=== PATIENT | female | born 1930 | race African-American/Black ===

== ENCOUNTER 2019-04-05 13:27 | Inpatient (IN) ==
[2019-04-05] MEDS ORDERED: SODIUM CHLORIDE 0.9% 1,000 ML IV ONE (15:25)
[2019-04-05] MEDS ORDERED: NOREPINEPHRINE 4 MG/4 ML VIAL IV ONE (15:33)
[2019-04-05] MEDS: NOREPINEPHRINE 8 MG in SODIUM CHLORIDE 0.9% 242 ML IV PRN ×2 (15:36→21:10)
[2019-04-05] MEDS ORDERED: PROPOFOL 1,000 MG/100 ML BOTTLE IV ONE (15:55)
[2019-04-05] MEDS: PROPOFOL 1,000 MG/100 ML BOTTLE IV SCH (16:02)
[2019-04-05 16:06] LABS: ABG Base Excess -10.6 MMOL/L (-2.5-2.5); ABG Oxygen Saturation 94.3 % (95-100); ABG PCO2 51.1 MM HG (35-48); ABG TCO2 17.1 MMOL/L (23-27); Allen Test Positive; Pt O2 Delivery Device Ventilator
[2019-04-05 16:09] LABS: ABG PH 7.161 (7.35-7.45)
[2019-04-05] MEDS ORDERED: SODIUM BICARBONATE 50 MEQ/50 ML VIAL IV ONE ×2 (16:09→16:10)
[2019-04-05] MEDS ORDERED: PHENYLEPHRINE DRIP 0 MG/0 ML PREMIX IV ONE (16:13)
[2019-04-05] MEDS ORDERED: DOBUTamine 500 MG/250 ML PREMIX IV ONE (16:14)
[2019-04-05] MEDS: DOBUTamine 500 MG/250 ML PREMIX IV PRN (16:24)
[2019-04-05 17:03] LABS: Basophils % 0.4 % (0.0-0.8); Hematocrit 34.2 VOL% (35.7-47.0); Hemoglobin 10.7 GM/DL (12.0-16.0); Immature Granulocytes % 2.6 %; Lymphocytes # 1.5 10*3/uL (1.4-4.0); Lymphocytes % 19.6 % (21.3-54.2); Mean Corpuscular HGB Conc 31.3 GM/DL (32-36); Mean Corpuscular Volume 87.2 FL (87-102); Mean Platelet Volume 11.3 FL (9.6-12.0); Monocytes % 2.5 % (1.7-12.7); Neutrophils % 74.9 % (38.7-73.9); Platelet Count 149 T/CUMM (130-400); Red Blood Count 3.92 MC/CUMM (3.8-5.5); Red Cell Distribution Width 14.9 % (9.3-17.3); White Blood Count 7.7 T/CUMM (4-12)
[2019-04-05 17:30] LABS: Albumin 2.5 G/DL (3.4-5.0); Bilirubin,Total 0.5 MG/DL (0.2-1.0); Calcium 8.4 MG/DL (8.5-10.1); Osmolality,Calculated 302.1 MOS/KG (273-304); Total Protein 5.9 G/DL (6.4-8.3)
[2019-04-05 17:37] LABS: Risk Ratio 5.32; Thyroid Stimulating Hormone 8.54 uIU/ml (0.358-3.74); VLDL CHOLESTEROL 51.6 MG/DL
[2019-04-05 18:15] LABS: ABG Base Excess 0.2 MMOL/L (-2.5-2.5); ABG HCO3 24.4 MMOL/L (20-26); ABG Oxygen Saturation 89.8 % (95-100); ABG PH 7.477 (7.35-7.45); ABG TCO2 20.5 MMOL/L (23-27); Allen Test Positive; Pt O2 Delivery Device Ventilator
[2019-04-05] MEDS ORDERED: FUROSEMIDE 40 MG/4 ML VIAL IV ONE (18:20)
[2019-04-05] MEDS: MIDAZOLAM 100 MG in SODIUM CHLORIDE 0.9% 80 ML IV PRN (18:37)
[2019-04-05] MEDS: methylPREDNISolone SOD SUC 40 MG/1 ML VIAL IV SCH (20:04)
[2019-04-05 22:28] LABS: Apearance,Urine CLEAR (Clear); Bacteria,Urine Occasional /HPF (Few); Bilirubin,Urine Negative (Negative); Blood, Urine Small mg/dL (Negative); Glucose,Urine (UA) Negative (Negative); Hyaline Casts,Urine 3 /LPF (0-3); Ketones,Urine Negative (Negative); Mucus,Urine Occasional /LPF (Occasional); Nitrite,Urine Negative (Negative); Protein,Urine Negative; RBC,Urine 5 /HPF (0-4); Squamous Epithelial Cell,Urine Occasional /HPF (0-10); Urine Color Straw (Yellow); Urine Specific Gravity 1.006 (1.001-1.035); Urine Urobilinogen < 2.0 EU/DL (0.2-1.0); WBC,Urine 7 /HPF (0-6)
[2019-04-06 02:15] LABS: Basophils % 0.2 % (0.0-0.8); Hematocrit 34.4 VOL% (35.7-47.0); Hemoglobin 10.6 GM/DL (12.0-16.0); Immature Granulocytes % 0.6 %; Immature Granulocytes Absolute 0.06 #; Lymphocytes # 0.5 10*3/uL (1.4-4.0); Lymphocytes % 5.1 % (21.3-54.2); Mean Corpuscular HGB Conc 30.8 GM/DL (32-36); Mean Corpuscular Volume 85.6 FL (87-102); Monocytes % 2.5 % (1.7-12.7); Neutrophils % 91.6 % (38.7-73.9); Platelet Count 178 T/CUMM (130-400); Red Blood Count 4.02 MC/CUMM (3.8-5.5); Red Cell Distribution Width 14.8 % (9.3-17.3); White Blood Count 10.2 T/CUMM (4-12)
[2019-04-06] MEDS: methylPREDNISolone SOD SUC 40 MG/1 ML VIAL IV SCH ×3 (03:20→17:30)
[2019-04-06] MEDS ORDERED: FUROSEMIDE 40 MG/4 ML VIAL IV ONE (03:22)
[2019-04-06] MEDS ORDERED: FUROSEMIDE 40 MG/4 ML VIAL ONE (03:26)
[2019-04-06 04:24] LABS: Lymphocytes 4 % (20-55); Platelet Estimate Normal; Segmented Neutrophils 94 % (50-85); Total Cells Counted 100
[2019-04-06 05:02] LABS: ABG Base Excess 1.8 MMOL/L (-2.5-2.5); ABG Oxygen Saturation 95.7 % (95-100); ABG PCO2 22.7 MM HG (35-48); ABG PO2 77.3 MM HG (80-95); ABG TCO2 22.7 MMOL/L (23-27); Allen Test Positive; Pt O2 Delivery Device Ventilator
[2019-04-06 05:03] LABS: ABG PH 7.605 (7.35-7.45)
[2019-04-06 07:36] LABS: ABG Base Excess 2.8 MMOL/L (-2.5-2.5); ABG HCO3 26.9 MMOL/L (20-26); ABG PCO2 30.4 MM HG (35-48); ABG PH 7.523 (7.35-7.45); ABG TCO2 22.3 MMOL/L (23-27); Pt O2 Delivery Device Ventilator
[2019-04-06] MEDS: PANTOPRAZOLE 40 MG VIAL IV SCH (09:06)
[2019-04-06] MEDS ORDERED: GLUCAGON 1 MG VIAL IM PRN (11:43)
[2019-04-06] MEDS ORDERED: DEXTROSE 50% 25 GM/50 ML SYRINGE IV PRN (11:43)
[2019-04-06] MEDS: INSULIN REGULAR 100 UNIT/ML SUBCUT SCH ×2 (13:05→17:22)
[2019-04-06] MEDS: PROPOFOL 1,000 MG/100 ML BOTTLE IV SCH (19:12)
[2019-04-06] MEDS: DOBUTamine 500 MG/250 ML PREMIX IV PRN (23:45)
[2019-04-07] MEDS: INSULIN REGULAR 100 UNIT/ML SUBCUT SCH ×4 (00:25→18:39)
[2019-04-07] MEDS: MIDAZOLAM 100 MG in SODIUM CHLORIDE 0.9% 80 ML IV PRN (03:41)
[2019-04-07] MEDS: methylPREDNISolone SOD SUC 40 MG/1 ML VIAL IV SCH ×3 (03:42→18:39)
[2019-04-07 03:59] LABS: ABG Base Excess 2.9 MMOL/L (-2.5-2.5); ABG Oxygen Saturation 99.7 % (95-100); ABG PCO2 28.2 MM HG (35-48); ABG PH 7.552 (7.35-7.45); ABG TCO2 22.8 MMOL/L (23-27); Allen Test Positive; Pt O2 Delivery Device Ventilator
[2019-04-07 04:47] LABS: Basophils % 0.1 % (0.0-0.8); Hematocrit 26.7 VOL% (35.7-47.0); Hemoglobin 8.4 GM/DL (12.0-16.0); Immature Granulocytes % 0.7 %; Immature Granulocytes Absolute 0.08 #; Lymphocytes # 0.4 10*3/uL (1.4-4.0); Lymphocytes % 3.3 % (21.3-54.2); Mean Corpuscular HGB Conc 31.5 GM/DL (32-36); Mean Corpuscular Volume 85.9 FL (87-102); Mean Platelet Volume 12.4 FL (9.6-12.0); Monocytes % 4.1 % (1.7-12.7); Neutrophils % 91.8 % (38.7-73.9); Platelet Count 130 T/CUMM (130-400); Red Blood Count 3.11 MC/CUMM (3.8-5.5); Red Cell Distribution Width 15.6 % (9.3-17.3); White Blood Count 11.8 T/CUMM (4-12)
[2019-04-07 05:03] LABS: Calcium 8.7 MG/DL (8.5-10.1); Osmolality,Calculated 303.1 MOS/KG (273-304)
[2019-04-07 05:06] LABS: Prealbumin 18.8 MG/DL (20-40)
[2019-04-07 05:08] LABS: Band Neutrophils 1 % (0-10); Hypochromasia 1+; Lymphocytes 6 % (20-55); Platelet Estimate Adequate; Segmented Neutrophils 92 % (50-85); Total Cells Counted 100
[2019-04-07] MEDS: PANTOPRAZOLE 40 MG VIAL IV SCH (08:57)
[2019-04-07] MEDS: MORPHINE 4 MG/1 ML VIAL IV PRN ×2 (10:01→20:59)
[2019-04-07 15:05] LABS: Hematocrit 24.1 VOL% (35.7-47.0); Hemoglobin 7.7 GM/DL (12.0-16.0); Immature Granulocytes % 0.8 %; Immature Granulocytes Absolute 0.09 #; Lymphocytes # 0.3 10*3/uL (1.4-4.0); Lymphocytes % 2.3 % (21.3-54.2); Mean Corpuscular Volume 85.5 FL (87-102); Mean Platelet Volume 12.1 FL (9.6-12.0); Monocytes % 3.3 % (1.7-12.7); Neutrophils % 93.6 % (38.7-73.9); Platelet Count 110 T/CUMM (130-400); Red Blood Count 2.82 MC/CUMM (3.8-5.5); Red Cell Distribution Width 15.4 % (9.3-17.3); White Blood Count 11.1 T/CUMM (4-12)
[2019-04-07] MEDS ORDERED: SODIUM CHLORIDE 0.9% 1,000 ML IV PRN (15:18)
[2019-04-07 15:32] LABS: Lymphocytes 2 % (20-55); Microcytosis 1+; Segmented Neutrophils 97 % (50-85); Total Cells Counted 100
[2019-04-07 15:33] LABS: Platelet Estimate Adequate; Target Cells Slight
[2019-04-07] MEDS: PROPOFOL 1,000 MG/100 ML BOTTLE IV SCH (18:34)
[2019-04-08] MEDS: INSULIN REGULAR 100 UNIT/ML SUBCUT SCH ×4 (00:06→18:23)
[2019-04-08 03:42] LABS: ABG Base Excess 2.3 MMOL/L (-2.5-2.5); ABG HCO3 26.4 MMOL/L (20-26); ABG Oxygen Saturation 99.6 % (95-100); ABG PCO2 30.5 MM HG (35-48); ABG PH 7.514 (7.35-7.45); ABG TCO2 21.9 MMOL/L (23-27); Allen Test Positive; Pt O2 Delivery Device Ventilator
[2019-04-08] MEDS: methylPREDNISolone SOD SUC 40 MG/1 ML VIAL IV SCH ×3 (04:22→18:27)
[2019-04-08 04:33] LABS: Basophils % 0.1 % (0.0-0.8); Hematocrit 32.9 VOL% (35.7-47.0); Hemoglobin 10.5 GM/DL (12.0-16.0); Immature Granulocytes % 1.6 %; Immature Granulocytes Absolute 0.18 #; Lymphocytes # 0.3 10*3/uL (1.4-4.0); Lymphocytes % 2.8 % (21.3-54.2); Mean Corpuscular HGB Conc 31.9 GM/DL (32-36); Mean Corpuscular Volume 87.7 FL (87-102); Monocytes % 3.8 % (1.7-12.7); Neutrophils % 91.7 % (38.7-73.9); Platelet Count 100 T/CUMM (130-400); Red Blood Count 3.75 MC/CUMM (3.8-5.5); Red Cell Distribution Width 14.8 % (9.3-17.3); White Blood Count 11.1 T/CUMM (4-12)
[2019-04-08 05:01] LABS: Calcium 9.2 MG/DL (8.5-10.1); Osmolality,Calculated 308.7 MOS/KG (273-304)
[2019-04-08 05:13] LABS: Lymphocytes 1 % (20-55); Segmented Neutrophils 96 % (50-85); Total Cells Counted 100
[2019-04-08 05:14] LABS: Anisocytosis 1+; Platelet Estimate Adequate
[2019-04-08] MEDS: MIDAZOLAM 100 MG in SODIUM CHLORIDE 0.9% 80 ML IV PRN (06:02)
[2019-04-08] MEDS: MULTIVITAMIN LIQUID (CENTRUM) 60 ML BOTTLE PER TUBE SCH (09:42)
[2019-04-08] MEDS: PANTOPRAZOLE 40 MG VIAL IV SCH (09:42)
[2019-04-08] MEDS: PROPOFOL 1,000 MG/100 ML BOTTLE IV SCH ×2 (09:44→18:22)
[2019-04-08] MEDS: MORPHINE 4 MG/1 ML VIAL IV PRN (23:21)
[2019-04-09] MEDS: INSULIN REGULAR 100 UNIT/ML SUBCUT SCH ×5 (01:08→23:35)
[2019-04-09] MEDS: methylPREDNISolone SOD SUC 40 MG/1 ML VIAL IV SCH ×3 (03:20→18:25)
[2019-04-09] MEDS: PROPOFOL 1,000 MG/100 ML BOTTLE IV SCH ×3 (04:42→18:35)
[2019-04-09 05:01] LABS: Osmolality,Calculated 305.7 MOS/KG (273-304)
[2019-04-09 05:17] LABS: ABG Base Excess 1.5 MMOL/L (-2.5-2.5); ABG HCO3 25.7 MMOL/L (20-26); ABG Oxygen Saturation 97.7 % (95-100); ABG PCO2 33.4 MM HG (35-48); ABG PH 7.474 (7.35-7.45); ABG PO2 93.8 MM HG (80-95); ABG TCO2 21.6 MMOL/L (23-27); Allen Test Positive; Pt O2 Delivery Device Ventilator
[2019-04-09] MEDS: MULTIVITAMIN LIQUID (CENTRUM) 60 ML BOTTLE PER TUBE SCH (09:21)
[2019-04-09] MEDS: FUROSEMIDE 40 MG/4 ML VIAL IV SCH ×2 (09:21→16:49)
[2019-04-09] MEDS: LANSOPRAZOLE ODT 30 MG TABLET PO SCH (09:22)
[2019-04-09] MEDS: DEXMEDETOMIDINE 200 MCG in SODIUM CHLORIDE 0.9% 48 ML IV PRN ×2 (15:15→20:20)
[2019-04-09] MEDS ORDERED: FUROSEMIDE 40 MG/4 ML VIAL IV SCH (16:00)
[2019-04-10] MEDS: methylPREDNISolone SOD SUC 40 MG/1 ML VIAL IV SCH ×3 (03:59→18:38)
[2019-04-10 05:34] LABS: ABG Base Excess 2.4 MMOL/L (-2.5-2.5); ABG HCO3 25.4 MMOL/L (20-26); ABG Oxygen Saturation 96.5 % (95-100); ABG PH 7.491 (7.35-7.45); ABG PO2 87.7 MM HG (80-95); ABG TCO2 26.4 MMOL/L (23-27); Allen Test Positive; Pt O2 Delivery Device Ventilator
[2019-04-10] MEDS: INSULIN REGULAR 100 UNIT/ML SUBCUT SCH ×3 (05:42→18:38)
[2019-04-10] MEDS: FUROSEMIDE 40 MG/4 ML VIAL IV SCH ×2 (10:03→15:41)
[2019-04-10] MEDS: LANSOPRAZOLE ODT 30 MG TABLET PO SCH (10:04)
[2019-04-10] MEDS: MULTIVITAMIN LIQUID (CENTRUM) 60 ML BOTTLE PER TUBE SCH (10:04)
[2019-04-10 10:57] LABS: Basophils % 0.2 % (0.0-0.8); Hematocrit 38.7 VOL% (35.7-47.0); Hemoglobin 12.4 GM/DL (12.0-16.0); Immature Granulocytes % 1.1 %; Lymphocytes # 0.2 10*3/uL (1.4-4.0); Lymphocytes % 2.3 % (21.3-54.2); Mean Platelet Volume 12.5 FL (9.6-12.0); Monocytes % 6.2 % (1.7-12.7); Neutrophils % 90.2 % (38.7-73.9); Platelet Count 128 T/CUMM (130-400); Red Blood Count 4.45 MC/CUMM (3.8-5.5); Red Cell Distribution Width 14.8 % (9.3-17.3); White Blood Count 9.2 T/CUMM (4-12)
[2019-04-10] MEDS ORDERED: PIPERACILLIN/TAZOBACTAM 3,375 MG in SODIUM CHLORIDE 0.9% 100 ML IV SCH (12:30)
[2019-04-10 12:51] LABS: Albumin 2.5 G/DL (3.4-5.0); Bilirubin,Total 0.5 MG/DL (0.2-1.0); Calcium 8.9 MG/DL (8.5-10.1); Osmolality,Calculated 315.8 MOS/KG (273-304); Total Protein 6.4 G/DL (6.4-8.3)
[2019-04-10] MEDS ORDERED: POTASSIUM CHLORIDE 20 MEQ/15 ML UDCUP PO ONE (13:13)
[2019-04-10] MEDS ORDERED: POTASSIUM CHLORIDE RIDER 100 ML IV ONE (13:16)
[2019-04-10 13:20] LABS: Band Neutrophils 1 % (0-10); Lymphocytes 4 % (20-55); Nucleated Red Blood Cells 1 (0-5); Segmented Neutrophils 95 % (50-85); Total Cells Counted 100
[2019-04-10 13:21] LABS: Hypochromasia Slight; Microcytosis Slight; Platelet Estimate Adequate; Polychromasia Slight
[2019-04-10] MEDS: PIPERACILLIN/TAZOBACTAM 2,250 MG in SODIUM CHLORIDE 0.9% 100 ML IV SCH ×2 (13:32→18:38)
[2019-04-10] MEDS: POTASSIUM CHLORIDE RIDER 20 MEQ in PREMIX 1 EACH IV SCH ×2 (13:33→15:41)
[2019-04-10] MEDS: CARVEDILOL 6.25 MG TABLET PO SCH ×2 (14:29→21:13)
[2019-04-10] MEDS: hydrALAZINE 25 MG TABLET PO SCH ×2 (14:29→21:13)
[2019-04-11] MEDS: INSULIN REGULAR 100 UNIT/ML SUBCUT SCH ×4 (01:30→19:47)
[2019-04-11] MEDS: methylPREDNISolone SOD SUC 40 MG/1 ML VIAL IV SCH ×2 (01:32→13:43)
[2019-04-11] MEDS: PIPERACILLIN/TAZOBACTAM 2,250 MG in SODIUM CHLORIDE 0.9% 100 ML IV SCH ×2 (01:32→07:24)
[2019-04-11 05:04] LABS: Basophils % 0.2 % (0.0-0.8); Hematocrit 40.9 VOL% (35.7-47.0); Hemoglobin 13.1 GM/DL (12.0-16.0); Immature Granulocytes % 3.4 %; Immature Granulocytes Absolute 0.35 #; Lymphocytes # 0.4 10*3/uL (1.4-4.0); Lymphocytes % 4.2 % (21.3-54.2); Mean Corpuscular Volume 86.3 FL (87-102); Mean Platelet Volume 12.9 FL (9.6-12.0); Monocytes % 5.8 % (1.7-12.7); Neutrophils % 86.4 % (38.7-73.9); Platelet Count 159 T/CUMM (130-400); Red Blood Count 4.74 MC/CUMM (3.8-5.5); Red Cell Distribution Width 15.1 % (9.3-17.3); White Blood Count 10.4 T/CUMM (4-12)
[2019-04-11 05:16] LABS: Albumin 2.4 G/DL (3.4-5.0); Bilirubin,Total 0.9 MG/DL (0.2-1.0); Calcium 9.1 MG/DL (8.5-10.1); Total Protein 6.6 G/DL (6.4-8.3)
[2019-04-11 05:17] LABS: Osmolality,Calculated 308.8 MOS/KG (273-304); Prealbumin 23.1 MG/DL (20-40)
[2019-04-11 05:29] LABS: Lymphocytes 6 % (20-55); Segmented Neutrophils 89 % (50-85); Total Cells Counted 100
[2019-04-11 05:30] LABS: Anisocytosis Slight; Microcytosis Slight; Polychromasia Slight; Target Cells Few
[2019-04-11 05:31] LABS: Platelet Estimate Normal
[2019-04-11] MEDS: FUROSEMIDE 40 MG/4 ML VIAL IV SCH ×2 (07:27→18:16)
[2019-04-11] MEDS: CARVEDILOL 6.25 MG TABLET PO SCH ×2 (08:22→21:39)
[2019-04-11] MEDS: hydrALAZINE 25 MG TABLET PO SCH ×2 (08:22→21:39)
[2019-04-11] MEDS: MULTIVITAMIN LIQUID (CENTRUM) 60 ML BOTTLE PER TUBE SCH (08:24)
[2019-04-11] MEDS: LANSOPRAZOLE ODT 30 MG TABLET PO SCH (08:25)
[2019-04-11] MEDS ORDERED: methylPREDNISolone SOD SUC 40 MG/1 ML VIAL IV SCH (13:00)
[2019-04-11] MEDS ORDERED: VANCOMYCIN INJ 1,000 MG in SODIUM CHLORIDE 0.9% 250 ML IV SCH (15:00)
[2019-04-11] MEDS: cefTRIAXone 1,000 MG in SYRINGE 1 EACH IV SCH (15:39)
[2019-04-12] MEDS: INSULIN REGULAR 100 UNIT/ML SUBCUT SCH ×4 (00:13→23:43)
[2019-04-12] MEDS: methylPREDNISolone SOD SUC 40 MG/1 ML VIAL IV SCH ×2 (02:02→12:49)
[2019-04-12 05:15] LABS: Calcium 9.2 MG/DL (8.5-10.1); Osmolality,Calculated 304.4 MOS/KG (273-304)
[2019-04-12] MEDS: CARVEDILOL 6.25 MG TABLET PO SCH ×2 (08:48→20:09)
[2019-04-12] MEDS: hydrALAZINE 25 MG TABLET PO SCH ×2 (08:48→20:08)
[2019-04-12] MEDS: LANSOPRAZOLE ODT 30 MG TABLET PO SCH (08:49)
[2019-04-12] MEDS: FUROSEMIDE 40 MG/4 ML VIAL IV SCH (08:49)
[2019-04-12] MEDS: MULTIVITAMIN (CENTRUM) TABLET PO SCH (12:50)
[2019-04-12] MEDS: cefTRIAXone 1,000 MG in SYRINGE 1 EACH IV SCH (16:48)
[2019-04-12] MEDS: VANCOMYCIN INJ 1,000 MG in SODIUM CHLORIDE 0.9% 250 ML IV SCH (16:51)
[2019-04-12] MEDS: MULTIVITAMIN LIQUID (CENTRUM) 60 ML BOTTLE PER TUBE SCH (19:32)
[2019-04-13] MEDS: INSULIN REGULAR 100 UNIT/ML SUBCUT SCH ×4 (05:44→23:32)
[2019-04-13 08:14] LABS: Basophils % 0.4 % (0.0-0.8); Eosinophils # 0.1 10*3/uL (0.0-0.87); Eosinophils % 0.7 % (0.00-10.9); Hematocrit 38.4 VOL% (35.7-47.0); Hemoglobin 12.1 GM/DL (12.0-16.0); Immature Granulocytes % 6.5 %; Immature Granulocytes Absolute 0.47 #; Lymphocytes # 0.8 10*3/uL (1.4-4.0); Lymphocytes % 10.6 % (21.3-54.2); Mean Corpuscular HGB Conc 31.5 GM/DL (32-36); Mean Corpuscular Volume 87.1 FL (87-102); Mean Platelet Volume 11.2 FL (9.6-12.0); Monocytes % 9.9 % (1.7-12.7); Neutrophils % 71.9 % (38.7-73.9); Platelet Count 169 T/CUMM (130-400); Red Blood Count 4.41 MC/CUMM (3.8-5.5); Red Cell Distribution Width 14.9 % (9.3-17.3); White Blood Count 7.2 T/CUMM (4-12)
[2019-04-13 08:38] LABS: Albumin 2.3 G/DL (3.4-5.0); Bilirubin,Total 0.6 MG/DL (0.2-1.0); Calcium 8.6 MG/DL (8.5-10.1); Osmolality,Calculated 296.5 MOS/KG (273-304); Total Protein 5.7 G/DL (6.4-8.3)
[2019-04-13 08:45] LABS: Band Neutrophils 3 % (0-10); Eosinophils 3 % (0-10); Hypochromasia 1+; Lymphocytes 9 % (20-55); Microcytosis Slight; Platelet Estimate Adequate; Segmented Neutrophils 80 % (50-85); Total Cells Counted 100
[2019-04-13] MEDS: hydrALAZINE 25 MG TABLET PO SCH ×2 (10:16→21:45)
[2019-04-13] MEDS: MULTIVITAMIN (CENTRUM) TABLET PO SCH (10:16)
[2019-04-13] MEDS: FUROSEMIDE 40 MG/4 ML VIAL IV SCH (10:16)
[2019-04-13] MEDS: CARVEDILOL 6.25 MG TABLET PO SCH ×2 (10:16→21:45)
[2019-04-13] MEDS: LANSOPRAZOLE ODT 30 MG TABLET PO SCH (10:16)
[2019-04-13] MEDS: POTASSIUM CHLORIDE 20 MEQ TABLET PO SCH (10:17)
[2019-04-13] MEDS: POTASSIUM CHLORIDE RIDER 10 MEQ in PREMIX 1 EACH IV PRN ×4 (10:17→14:10)
[2019-04-13] MEDS: HEPARIN 5,000 UNIT/1 ML VIAL SUBCUT SCH ×2 (15:35→21:45)
[2019-04-13] MEDS: cefTRIAXone 1,000 MG in SYRINGE 1 EACH IV SCH (15:35)
[2019-04-13] MEDS: VANCOMYCIN INJ 1,000 MG in SODIUM CHLORIDE 0.9% 250 ML IV SCH (16:26)
[2019-04-14 04:31] LABS: Basophils # 0.1 10*3/uL (0.0-0.2); Basophils % 0.5 % (0.0-0.8); Eosinophils # 0.3 10*3/uL (0.0-0.87); Eosinophils % 2.6 % (0.00-10.9); Hematocrit 39.5 VOL% (35.7-47.0); Hemoglobin 12.6 GM/DL (12.0-16.0); Immature Granulocytes % 7.7 %; Immature Granulocytes Absolute 0.73 #; Lymphocytes % 10.6 % (21.3-54.2); Mean Corpuscular HGB Conc 31.9 GM/DL (32-36); Mean Corpuscular Volume 87.2 FL (87-102); Mean Platelet Volume 12.3 FL (9.6-12.0); Monocytes % 8.5 % (1.7-12.7); NRBC # 0.02 10*3/uL; Neutrophils % 70.1 % (38.7-73.9); Platelet Count 208 T/CUMM (130-400); Red Blood Count 4.53 MC/CUMM (3.8-5.5); Red Cell Distribution Width 14.9 % (9.3-17.3); White Blood Count 9.5 T/CUMM (4-12)
[2019-04-14 04:52] LABS: Band Neutrophils 3 % (0-10); Eosinophils 2 % (0-10); Lymphocytes 13 % (20-55); Segmented Neutrophils 81 % (50-85); Total Cells Counted 100
[2019-04-14 04:53] LABS: Anisocytosis 1+; Platelet Estimate Adequate
[2019-04-14 04:55] LABS: Albumin 2.3 G/DL (3.4-5.0); Bilirubin,Total 0.6 MG/DL (0.2-1.0); Calcium 8.5 MG/DL (8.5-10.1); Total Protein 5.7 G/DL (6.4-8.3)
[2019-04-14] MEDS: INSULIN REGULAR 100 UNIT/ML SUBCUT SCH ×2 (06:08→13:15)
[2019-04-14] MEDS: FUROSEMIDE 40 MG/4 ML VIAL IV SCH (09:09)
[2019-04-14] MEDS: hydrALAZINE 25 MG TABLET PO SCH (09:10)
[2019-04-14] MEDS: MULTIVITAMIN (CENTRUM) TABLET PO SCH (09:10)
[2019-04-14] MEDS: CARVEDILOL 6.25 MG TABLET PO SCH (09:10)
[2019-04-14] MEDS: LANSOPRAZOLE ODT 30 MG TABLET PO SCH (09:10)
[2019-04-14] MEDS: POTASSIUM CHLORIDE 20 MEQ TABLET PO SCH (09:10)
[2019-04-14 13:15] VITALS: BP 128/77
[2019-04-14] MEDS: HEPARIN 5,000 UNIT/1 ML VIAL SUBCUT SCH (13:15)
== END 2019-04-14 15:10 | disposition home health service (06) | DRG 207 ==
LOC: N.ICU 14:55 → SUATTDRO 14:55 → N.5E 04-11 11:23
PROVIDERS: ADMIT Internal Medicine

== ENCOUNTER 2019-12-18 19:43 | Inpatient (IN) ==
[2019-12-18] MEDS ORDERED: DOCUSATE SODIUM 100 MG CAPSULE PO PRN ×2 (22:04→23:43)
[2019-12-18] MEDS ORDERED: guaiFENesin/DM ER 600-30 MG TABLET PO PRN ×2 (22:04→23:43)
[2019-12-18] MEDS ORDERED: ONDANSETRON 4 MG/2 ML VIAL IV PRN ×2 (22:04→23:43)
[2019-12-18] MEDS ORDERED: ZALEPLON 5 MG CAPSULE PO PRN ×2 (22:04→23:43)
[2019-12-18] MEDS ORDERED: ACETAMINOPHEN 325 MG TABLET PO PRN ×2 (22:04→23:43)
[2019-12-18] MEDS ORDERED: PROMETHAZINE 25 MG TABLET PO PRN ×2 (22:04→23:43)
[2019-12-18] MEDS ORDERED: ATROPINE 1 MG/10 ML SYRINGE ONE ×2 (23:44→23:45)
[2019-12-18] MEDS ORDERED: EPINEPHrine 1 MG/10 ML SYRINGE ONE (23:45)
[2019-12-18] MEDS ORDERED: NOREPINEPHRINE 4 MG/4 ML VIAL IV ONE (23:45)
[2019-12-18] MEDS ORDERED: VASOPRESSIN 100 UNITS in SODIUM CHLORIDE 0.9% 95 ML IV PRN (23:50)
[2019-12-18] MEDS: DOBUTamine 500 MG/250 ML PREMIX IV PRN (23:54)
[2019-12-18] MEDS ORDERED: DOBUTamine 500 MG/250 ML PREMIX IV ONE (23:57)
[2019-12-19] MEDS ORDERED: MIDAZOLAM 100 MG in SODIUM CHLORIDE 0.9% 80 ML IV PRN (00:12)
[2019-12-19] MEDS ORDERED: fentaNYL INJ 1,250 MCG in SODIUM CHLORIDE 0.9% 225 ML IV PRN (00:13)
[2019-12-19] MEDS ORDERED: CISATRACURIUM 10 MG/5 ML VIAL IV ONE (00:14)
[2019-12-19] MEDS ORDERED: CISATRACURIUM 200 MG in SODIUM CHLORIDE 0.9% 180 ML IV SCH (00:30)
[2019-12-19] MEDS ORDERED: POTASSIUM CHLORIDE RIDER 10 MEQ in PREMIX 1 EACH IV PRN (00:33)
[2019-12-19] MEDS ORDERED: POTASSIUM CHLORIDE RIDER 20 MEQ in PREMIX 1 EACH IV PRN (00:33)
[2019-12-19] MEDS ORDERED: MAGNESIUM SULF RIDER 2 GM in PREMIX 1 EACH IV PRN (00:37)
[2019-12-19] MEDS ORDERED: MAGNESIUM SULF RIDER 4 GM in PREMIX 1 EACH IV PRN (00:37)
[2019-12-19] MEDS ORDERED: NOREPINEPHRINE 8 MG in SODIUM CHLORIDE 0.9% 242 ML IV PRN (00:38)
[2019-12-19] MEDS ORDERED: NOREPINEPHRINE 16 MG in SODIUM CHLORIDE 0.9% 234 ML IV PRN (00:38)
[2019-12-19] MEDS ORDERED: MEPERIDINE 25 MG/1 ML VIAL IV PRN (00:39)
[2019-12-19] MEDS ORDERED: DEXTROSE 50% 25 GM/50 ML SYRINGE IV PRN (00:42)
[2019-12-19] MEDS ORDERED: GLUCAGON 1 MG VIAL IM PRN (00:42)
[2019-12-19 00:45] LABS: ABG Base Excess -14.1 MMOL/L (-2.5-2.5); ABG HCO3 13.3 MMOL/L (20-26); ABG PCO2 64.5 MM HG (35-48); ABG PO2 54.3 MM HG (80-95)
[2019-12-19 00:46] LABS: ABG PH 7.046 (7.35-7.45)
[2019-12-19] MEDS ORDERED: SODIUM BICARBONATE 50 MEQ/50 ML VIAL IV ONE (00:49)
[2019-12-19] MEDS ORDERED: FAMOTIDINE 20 MG/2 ML VIAL IV SCH (01:00)
[2019-12-19] MEDS ORDERED: ENOXAPARIN 60 MG/0.6 ML SYRINGE SUBCUT ONE (01:33)
[2019-12-19 01:42] LABS: Basophils % 0.1 % (0.0-0.8); Hematocrit 32.7 VOL% (35.7-47.0); Hemoglobin 10.3 GM/DL (12.0-16.0); Immature Granulocytes % 1.8 %; Immature Granulocytes Absolute 0.13 #; Lymphocytes # 1.3 10*3/uL (1.4-4.0); Lymphocytes % 18.4 % (21.3-54.2); Mean Corpuscular HGB Conc 31.5 GM/DL (32-36); Mean Corpuscular Volume 90.1 FL (87-102); Mean Platelet Volume 11.2 FL (9.6-12.0); Monocytes % 0.8 % (1.7-12.7); Neutrophils % 78.9 % (38.7-73.9); Platelet Count 116 T/CUMM (130-400); Red Blood Count 3.63 MC/CUMM (3.8-5.5); Red Cell Distribution Width 13.5 % (9.3-17.3); White Blood Count 7.1 T/CUMM (4-12)
[2019-12-19 01:53] LABS: Calcium 7.8 MG/DL (8.5-10.1)
[2019-12-19] MEDS ORDERED: AZITHROMYCIN INJ 500 MG in SODIUM CHLORIDE 0.9% 250 ML IV SCH (02:00)
[2019-12-19] MEDS ORDERED: VANCOMYCIN INJ 1,000 MG in SODIUM CHLORIDE 0.9% 250 ML IV SCH (02:00)
[2019-12-19 02:02] LABS: CKMB % 11.9 %
[2019-12-19 02:04] LABS: Troponin I 9.55 NG/ML (0.00-0.045)
[2019-12-19 02:07] LABS: ABG Base Excess -5.2 MMOL/L (-2.5-2.5); ABG HCO3 20.1 MMOL/L (20-26); ABG Oxygen Saturation 98.8 % (95-100); ABG PCO2 48.4 MM HG (35-48); ABG PH 7.264 (7.35-7.45); ABG TCO2 20.2 MMOL/L (23-27)
[2019-12-19] MEDS ORDERED: SODIUM CHLORIDE 0.9% 2,000 ML IV ONE (02:16)
[2019-12-19] MEDS ORDERED: PHENYLEPHRINE INJ 160 MG in SODIUM CHLORIDE 0.9% 234 ML IV PRN (03:21)
[2019-12-19] MEDS ORDERED: PIPERACILLIN/TAZOBACTAM 3,375 MG in SODIUM CHLORIDE 0.9% 100 ML IV SCH (03:30)
[2019-12-19] MEDS: INSULIN REGULAR 100 UNIT/ML IV SCH ×4 (03:41→10:29)
[2019-12-19] MEDS: DOBUTamine 500 MG/250 ML PREMIX IV PRN ×2 (03:42→07:20)
[2019-12-19] MEDS ORDERED: EPINEPHrine 1 MG/ML VIAL ONE (05:23)
[2019-12-19] MEDS ORDERED: ATROPINE 1 MG/10 ML SYRINGE ONE (05:41)
[2019-12-19] MEDS ORDERED: CALCIUM CHLORIDE 1,000 MG/10 ML SYRINGE IV ONE (05:41)
[2019-12-19] MEDS ORDERED: EPINEPHrine 1 MG/10 ML SYRINGE ONE (05:41)
[2019-12-19] MEDS ORDERED: SODIUM BICARBONATE 10 MEQ/10 ML SYRINGE IV ONE (05:41)
[2019-12-19 07:34] LABS: Basophils % 0.2 % (0.0-0.8); Hemoglobin 9.9 GM/DL (12.0-16.0); Immature Granulocytes % 2.8 %; Immature Granulocytes Absolute 0.25 #; Lymphocytes # 0.6 10*3/uL (1.4-4.0); Lymphocytes % 6.5 % (21.3-54.2); Mean Corpuscular HGB Conc 30.9 GM/DL (32-36); Mean Corpuscular Volume 91.2 FL (87-102); Mean Platelet Volume 10.4 FL (9.6-12.0); Monocytes % 1.5 % (1.7-12.7); Red Blood Count 3.51 MC/CUMM (3.8-5.5); Red Cell Distribution Width 13.7 % (9.3-17.3); White Blood Count 9.1 T/CUMM (4-12)
[2019-12-19 07:40] LABS: Calcium 7.9 MG/DL (8.5-10.1); Osmolality,Calculated 315.9 MOS/KG (273-304); Platelet Count 96 T/CUMM (130-400)
[2019-12-19 07:45] LABS: Band Neutrophils 5 % (0-10); Hypochromasia 1+; Lymphocytes 9 % (20-55); Ovalocytes Slight; Platelet Estimate Decreased; Segmented Neutrophils 85 % (50-85); Total Cells Counted 100
[2019-12-19 07:49] LABS: Risk Ratio 5.16
[2019-12-19 07:55] LABS: CKMB % 16.1 %
[2019-12-19 07:59] LABS: Troponin I 67.1 NG/ML (0.00-0.045)
[2019-12-19 08:00] LABS: Amorphous Crystals,Urine Few /HPF (Few); Apearance,Urine CLOUDY (Clear); Bacteria,Urine Occasional /HPF (Few); Bilirubin,Urine Negative (Negative); Blood, Urine Large mg/dL (Negative); Glucose,Urine (UA) 50 mg/dL (Negative); Ketones,Urine Negative (Negative); Mucus,Urine Occasional /LPF (Occasional); Nitrite,Urine Negative (Negative); Protein,Urine 100 MG/DL; RBC,Urine 85 /HPF (0-4); Renal Epithelial Cells,Urine Occasional /HPF (<1); Squamous Epithelial Cell,Urine Occasional /HPF (0-10); Urine Color Yellow (Yellow); Urine Specific Gravity 1.008 (1.001-1.035); Urine Urobilinogen < 2.0 EU/DL (0.2-1.0); WBC,Urine 28 /HPF (0-6)
[2019-12-19] MEDS ORDERED: CLOPIDOGREL 75 MG TABLET PO SCH ×2 (09:00)
[2019-12-19] MEDS ORDERED: ASPIRIN EC 325 MG TABLET PO SCH ×2 (09:00)
[2019-12-19] MEDS ORDERED: DONEPEZIL 5 MG TABLET PO SCH ×2 (21:00)
[2019-12-21] MEDS ORDERED: VANCOMYCIN INJ 1,000 MG in SODIUM CHLORIDE 0.9% 250 ML IV SCH (02:00)
== END 2019-12-19 08:11 | disposition expired ==
LOC: N.CC 19:56 → SUATTDRO 23:42
PROVIDERS: ADMIT Internal Medicine; ATTEND Family Medicine